=== PATIENT | female | born 1995 | race Caucasian/White ===

== ENCOUNTER 2024-05-03 12:34 | Emergency (ER) | payer MEDICAID ==
[~2024-05-03] VITALS: Ht 165.1 cm; Wt 81.8 kg
[2024-05-03 12:37] VITALS: BP 117/74; PULSE 98; O2SAT 96
[2024-05-03] MEDS ORDERED: CLAR-36 PO (12:57)
[2024-05-03 13:03] VITALS: RESP 16; TEMP 97.1
== END 2024-05-03 13:00 | disposition home or self-care (01) ==
LOC: ER 12:35
DX: H66.91 Otitis media, unspecified, right ear (principal); R05.9 Cough, unspecified; J32.8 Other chronic sinusitis; Z88.0 Allergy status to penicillin
CPT/HCPCS: 99283